=== PATIENT | male | born 1965 | race Caucasian/White ===

== ENCOUNTER 2019-02-01 05:17 | Emergency (ER) | payer OTHER ==
[~2019-02-01] VITALS: Ht 167.6 cm; Wt 81.6 kg
[2019-02-01 05:24] VITALS: Ht 167.6 cm; Wt 81.6 kg
[2019-02-01 07:33] VITALS: BP 134/75
== END 2019-02-01 07:57 | disposition home or self-care (01) ==
LOC: ED 05:17
DX: S09.8XXA Other specified injuries of head, initial encounter (principal); F84.0 Autistic disorder; J45.909 Unspecified asthma, uncomplicated; W06.XXXA Fall from bed, initial encounter; Y93.89 Activity, other specified; Y92.89 Other specified places as the place of occurrence of the external cause; Y99.8 Other external cause status
CPT/HCPCS: J7512; J7613; J7644